=== PATIENT | female | born 1955 | race Caucasian/White ===

== ENCOUNTER 2023-06-25 07:00 | Outpatient (CLI) | payer OTHER ==
--- NOTE | 2023-06-26 08:58 | XRAY Report ---
PROCEDURE: Foot 3+V LT INDICATIONS: PAIN IN LEFT FOOT TECHNIQUE: 3 views of the foot were acquired. COMPARISON: None. FINDINGS: Bones: No fractures or dislocations. No suspicious bony lesions. Moderate osteoarthritic changes, most pronounced at the first metatarsophalangeal joint. Calcaneal spurring at the Achilles tendon ins ertion. Bipartite medial sesamoid. Soft tissues: No tibiotalar joint effusion. IMPRESSION: 1. Moderate osteoarthritis. 2. Calcaneal spurring at the Achilles tendon insertion likely secondary to enthesopathy. Reviewed by: Gigi Harmon MD on 06/26/2023 8:56 AM PDT Approved by: Gigi Harmon MD on 06/26/2023 8:56 AM PDT Station ID: [id number]
== END 2023-06-25 23:59 | disposition home or self-care (01) ==
LOC: DI.S 07:00
PROVIDERS: ATTEND Emergency Medicine
DX: M19.072 Primary osteoarthritis, left ankle and foot (principal); M77.32 Calcaneal spur, left foot